=== PATIENT | female | born 1980 | race Caucasian/White ===

== ENCOUNTER 2017-09-16 15:40 | Emergency (ER) | payer BC, OTHER ==
[2017-09-16 15:53] VITALS: BP 109/53; BMI 27.6
--- NOTE | 2017-09-16 16:27 | DR.GENAD ---
HPI - PCP Primary Care Physician: BALTAZAR - HPI Comment HPI Comment: had some central abd pain last night, did not notice any fevers - Complaint/Symptoms Chief Complaint Doctors Comments: 2.9x2.3cm pocket of fluid in RLQ seen on US today, pt thought she might have ruptured ovarian cyst. Normal pelvic exam in clinic today, neg in clinic today. Chief Complaint:: RLQ PAIN PT WAS REFERRED BY DR. LEDESMA - Source History Provided: Patient - Mode of Arrival Mode of Arrival: Ambulatory - Timing Onset of Chief Complaint: 09/15/17 Came on: Suddenly - Duration Duration: Since Onset - Severity Severity: Moderate PMH - PMH Past Medical History: Yes (starting menses ) Past Medical History Comment: MITRO VALVA PROLAPSE. TACHYCARDIA Past Surgical History: No - Family History History of Family Medical Conditions: Yes Family Medical History: Cancer - Social History Does patient currently use any type of tobacco product: No Have you used tobacco products in the last 12 months: No Type of Tobacco Use: None Alcohol Use: None Do you use any recreational Drugs:: No Lives With: Spouse Lives Where: Home - infectious screening In the last 2 months have you had wt loss of >10#?: NO Have you had fever, night sweats or hemotysis?: No Have you traveled outside the country in the last 6 months?: No Isolation: Standard ROS - Review of Systems Constitutional: Fever Eyes: No Symptoms Reported ENTM: No Symptoms Reported Respiratoy: No Symptoms Reported Cardiovascular: No Symptoms Reported Gastrointestinal/Abdominal: Abdominal Pain Genitourinary: No Symptoms Reported Neurological: No Symptoms Reported Musculoskeletal: No Symptoms Reported Integumentary: No Symptoms Reported Hematologic/Lymphatic: No Symptoms Reported Endocrine: No Symptoms Reported Psychiatric: No Symptoms Reported All Other Systems: Reviewed and Negative PE - Vital Signs Vitals: Temperature 100.1 F Pulse Rate 93 Respiratory Rate 20 Blood Pressure 109/53 O2 Sat by Pulse Oximetry 100 - General Limitations: No Limitations General Appearance: Alert, In No Apparent Distress - Head Head Exam: Normal Inspection - Eyes Eye exam: Normal Appearance - ENT ENT Exam: Normal Exam - Neck Neck Exam: Normal Inspection, Full ROM, Trachea Midline - Respiratory Respiratory Exam: Normal Lung Sounds Bilat Respiratory Exam: Bilateral Clear to Auscultation - Cardiovascular Cardiovascular Exam: Regular Rate, Normal Rhythm, Normal Heart Sounds. negative : Systolic Murmur, Diastolic Murmur - Abdominal Exam Abdominal Exam: Normal Bowel Sounds, Soft, Tenderness (RLQ mildly TTP, no guard , no rebound). negative: Guarding, Rebound Abdominal Tenderness: RLQ - Extremities Extremities Exam: Normal Inspection, Full ROM - Neurologic Neurological Exam: Alert, Oriented X3 - Psychiatric Psychiatric Exam: Normal Affect, Normal Mood - Skin Skin Exam: Warm, Dry, Intact Course - Treatment Treatment: Dr Reina came in to see pt, aspirated lesion seen on CT. He asks that we start pt on abx, he will f/u Thursday. Cultures sent. ROR - Labs Reviewed Laboratory Results Reviewed?: Yes Result Diagrams: 09/16/17 16:37 09/16/17 16:37 Laboratory: WBC 9.7 X10^3/uL (3.6-10.0) 09/16/17 16:37 RBC 4.82 X10^6/uL (3.5-5.4) 09/16/17 16:37 Hgb 14.0 g/dL (12.0-16.0) 09/16/17 16:37 Hct 40.3 % (36.0-47.0) 09/16/17 16:37 MCV 83.6 fL (80.0-100.0) 09/16/17 16:37 MCH 29.0 pg (27.0-34.0) 09/16/17 16:37 MCHC 34.7 g/dL (33.0-35.0) 09/16/17 16:37 RDW 12.9 % (11.6-16.5) 09/16/17 16:37 Plt Count 273 X10^3/uL (150.0-450.0) 09/16/17 16:37 MPV 8.9 fL (7.4-11.0) 09/16/17 16:37 Neut % 73.6 % (42.0-75.0) 09/16/17 16:37 Lymph % 17.5 % (21.0-51.0) L 09/16/17 16:37 Slope % 6.5 % (0.0-13.0) 09/16/17 16:37 Eos % 1.8 % (0.9-2.9) 09/16/17 16:37 Baso % 0.6 % (0.2-1.0) 09/16/17 16:37 Neut # 7.1 x10^3/uL (2.2-4.8) H 09/16/17 16:37 Lymph # 1.7 X10^3/uL (1.3-2.9) 09/16/17 16:37 Slope # 0.6 x10^3/uL (0.3-0.8) 09/16/17 16:37 Eos # 0.2 x10^3/uL (0.0-0.2) 09/16/17 16:37 Baso # 0.1 X10^3/uL (0.0-0.1) 09/16/17 16:37 Absolute Nucleated RBC 0.0 /100WBC 09/16/17 16:37 Sodium 141 mmol/L (136-145) 09/16/17 16:37 Corrected Sodium TNP 09/16/17 16:37 Potassium 3.6 mmol/L (3.5-5.1) 09/16/17 16:37 Chloride 106 mmol/L (98-107) 09/16/17 16:37 Carbon Dioxide 26.8 mmol/L (21-32) 09/16/17 16:37 BUN 9 mg/dL (7-18) 09/16/17 16:37 Creatinine 0.79 mg/dL (0.55-1.02) 09/16/17 16:37 Est GFR (MDRD) Af Amer > 60 (>60) 09/16/17 16:37 Est GFR (MDRD) Non-Af > 60 (>60) 09/16/17 16:37 Glucose 106 mg/dL (65-99) H 09/16/17 16:37 Calcium 8.9 mg/dL (8.5-10.1) 09/16/17 16:37 Corrected Calcium TNP 09/16/17 16:37 Total Bilirubin 0.40 mg/dL (0.2-1.0) 09/16/17 16:37 AST 13 Units/L (15-37) L 09/16/17 16:37 ALT 22 Units/L (12-78) 09/16/17 16:37 Alkaline Phosphatase 78 Units/L (46-116) 09/16/17 16:37 Total Protein 7.0 g/dL (6.4-8.2) 09/16/17 16:37 Albumin 3.8 g/dL (3.4-5.0) 09/16/17 16:37 Globulin 3.2 g/dL (2.5-4.5) 09/16/17 16:37 Albumin/Globulin Ratio 1.2 Ratio (1.1-2.1) 09/16/17 16:37 Specimen Type Clean catch urine 09/16/17 16:50 Urine Color Yellow (YELLOW) 09/16/17 16:50 Urine Appearance Clear (CLEAR) 09/16/17 16:50 Urine pH 7.0 (5.0 - 8.0) 09/16/17 16:50 Ur Specific [place] 1.010 (1.000-1.030) 09/16/17 16:50 Urine Protein Negative (NEGATIVE) 09/16/17 16:50 Urine Glucose (UA) Negative (NEGATIVE) 09/16/17 16:50 Urine Ketones Negative (NEGATIVE) 09/16/17 16:50 Urine Occult Blood 5+ (NEGATIVE) 09/16/17 16:50 Urine Nitrite Negative (NEGATIVE) 09/16/17 16:50 Urine Bilirubin Negative (NEGATIVE) 09/16/17 16:50 Urine Urobilinogen Normal (NORMAL) 09/16/17 16:50 Ur Leukocyte Esterase 1+ (NEGATIVE) 09/16/17 16:50 Urine RBC 10-12 /HPF (NONE SEEN) 09/16/17 16:50 Urine WBC 0-2 /HPF (NONE SEEN) 09/16/17 16:50 Ur Squamous Epith Cells Few /HPF (NEGATIVE) 09/16/17 16:50 Urine Bacteria Negative /HPF (NEGATIVE) 09/16/17 16:50 Ur Culture Indicated? No/not indicated 09/16/17 16:50 - XRAY XRAY Interpreted by: Radiologist XRAY Findings: fluid jose seen RLQ on CT - Diagnosis Discharge Problem: Abdominal fluid collection - Discharge Plan Disposition: 01 HOME, SELF-CARE Condition: Stable Prescriptions: Amoxicillin/Potassium Clav [Augmentin 875-125 Tablet] 1 tab PO Q12H #20 tab - Follow ups/Referrals Follow ups/Referrals: CLEMENTE LEDESMA [Primary Care Provider] - 3 days - Instructions
[2017-09-16 16:43] LABS: BASOPHILS # (AUTO) 0.1 X10^3/uL (0.0-0.1); BASOPHILS % (AUTO) 0.6 % (0.2-1.0); EOSINOPHILS # (AUTO) 0.2 x10^3/uL (0.0-0.2); EOSINOPHILS % (AUTO) 1.8 % (0.9-2.9); HEMATOCRIT 40.3 % (36.0-47.0); LYMPHOCYTES # (AUTO) 1.7 X10^3/uL (1.3-2.9); LYMPHOCYTES % (AUTO) 17.5 % (21.0-51.0); MEAN CORPUSCULAR HGB CONC 34.7 g/dL (33.0-35.0); MEAN CORPUSCULAR VOLUME 83.6 fL (80.0-100.0); MEAN PLATELET VOLUME 8.9 fL (7.4-11.0); MONOCYTES # (AUTO) 0.6 x10^3/uL (0.3-0.8); MONOCYTES % (AUTO) 6.5 % (0.0-13.0); NEUTROPHILS # (AUTO) 7.1 x10^3/uL (2.2-4.8); NEUTROPHILS % (AUTO) 73.6 % (42.0-75.0); PLATELET COUNT 273 X10^3/uL (150.0-450.0); RED BLOOD COUNT 4.82 X10^6/uL (3.5-5.4); RED CELL DISTRIBUTION WIDTH 12.9 % (11.6-16.5); WHITE BLOOD COUNT 9.7 X10^3/uL (3.6-10.0)
[2017-09-16 16:55] LABS: ALANINE AMINOTRANSFERASE 22 Units/L (12-78); ALBUMIN 3.8 g/dL (3.4-5.0); ALKALINE PHOSPHATASE 78 Units/L (46-116); ASPARTATE AMINO TRANSFERASE 13 Units/L (15-37); BLOOD UREA NITROGEN 9 mg/dL (7-18); CALCIUM 8.9 mg/dL (8.5-10.1); CARBON DIOXIDE 26.8 mmol/L (21-32); CHLORIDE 106 mmol/L (98-107); CREATININE 0.79 mg/dL (0.55-1.02); SODIUM 141 mmol/L (136-145); eGFR BLACK RACES > 60 (>60); eGFR NON BLACK RACES > 60 (>60)
[2017-09-16 17:01] LABS: BILIRUBIN,URINE NEGATIVE (NEGATIVE); BLOOD/HEMOGLOBIN,URINE 5+ (NEGATIVE); GLUCOSE, URINE NEGATIVE (NEGATIVE); KETONES,URINE NEGATIVE (NEGATIVE); LEUKOCYTE ESTERASE ,URINE 1+ (NEGATIVE); NITRITES,URINE NEGATIVE (NEGATIVE); PROTEIN,URINE NEGATIVE (NEGATIVE); UROBILINOGEN,URINE NORMAL (NORMAL)
--- NOTE | 2017-09-16 17:09 | CT ---
CT abdomen and pelvis without contrast Indication: Right lower quadrant pain with fluid collection seen in the right lower quadrant on ultra sound at doctor's office Technique: Helical CT images of the abdomen and pelvis were obtained with IV contrast. Reformatted im ages in the coronal and sagittal planes were also generated for review. Comparison: None Findings: Lung bases are clear. No aggressive osseous lesions are identified. Within the limits of a noncontrast exam, the liver, collapsed gallbladder, spleen, pancreas and adren als are unremarkable. Both kidneys and visualized ureters are normal without radiopaque stones or hyd roureteronephrosis. There is moderate stool within the sigmoid colon and rectum, suggestive for const ipation. There is no bowel inflammation or obstruction. The appendix is normal. The IVC, abdominal ao rta and urinary bladder are normal. The unenhanced uterus and adnexa are grossly within normal limits . No free air, free fluid or lymphadenopathy is identified. There is a small subcutaneous fluid collection in the right inguinal region, which measures approxima tely 2.6 x 2.1 cm (coronal image 10, series 5), which likely accounts for the patient's previously se en fluid collection. No gas is seen within the collection. There is mild stranding of the surrounding subcutaneous soft tissues. Impression: Small (2.6 cm) subcutaneous collection within the right inguinal region, which likely corresponds to the patient's previously seen fluid collection. Findings are nonspecific and could represent fluid-co ntaining right inguinal hernia or possibly abscess. Correlation recommended. Normal appendix. Reported By:
[2017-09-16 17:12] LABS: APPEARANCE,URINE CLEAR (CLEAR); BACTERIA,URINE NEGATIVE /HPF (NEGATIVE); COLOR,URINE YELLOW (YELLOW); SQUAMOUS EPITHELIAL CELL,UR FEW /HPF (NEGATIVE)
== END 2017-09-16 18:31 | disposition home or self-care (01) ==
LOC: ER 16:03
DX: R18.8 Other ascites (principal); R10.31 Right lower quadrant pain
CPT/HCPCS: 36415; 74176; 80053; 81001; 85025; 87070; 87075; 87205; 99283